=== PATIENT | female | born 1975 | race Caucasian/White ===

== ENCOUNTER → 2018-05-20 11:06 | Outpatient (CLI) | payer OTHER, SELFPAY ==
--- NOTE | 2018-05-20 11:11 | RAD_ITS ---
STUDY: X-RAY - LEFT ELBOW REASON FOR EXAM: Female, 42 years old. Posterior elbow pain. TECHNIQUE: 3 view(s) of the elbow. COMPARISON: None. FINDINGS: Normal visualized humerus, radius and ulna. Normal radiocapitellar and ulnotrochlear articulations. The soft tissue structures are unremarkable. RAD/Elbow min 3 Views IMPRESSION: Normal x-ray examination of the elbow. Electronically Signed: Zoltan Emery, at 12:49 EST , Service support ,
== END ==
PROVIDERS: Family Provider Internal Medicine; PCP Internal Medicine; Visit Provider Nurse Practitioner
DX: M25.522 Pain in left elbow (principal)
CPT/HCPCS: 73080

== ENCOUNTER → 2020-04-05 07:51 | Outpatient (CLI) | payer OTHER, SELFPAY | PROVIDERS: PCP Internal Medicine; Referring Provider Internal Medicine; Visit Provider Internal Medicine | DX: Z20.828 Contact with and (suspected) exposure to other viral communicable diseases (principal) | CPT/HCPCS: 36415; 86769 ==

== ENCOUNTER 2021-02-13 19:56 | Emergency (ER) | payer OTHER, SELFPAY ==
[2021-02-13 19:57] VITALS: BP 130/110; PULSE 72; RESP 14; TEMP 36.7; O2SAT 100; BMI 25.0
--- NOTE | 2021-02-13 20:52 | EKG12_ITS ---
Test Reason : CP Blood Pressure : / mmHG Vent. Rate : 069 BPM Atrial Rate : 069 BPM P-R Int : 164 ms QRS Dur : 082 ms QT Int : 430 ms P-R-T Axes : 073 086 072 degrees QTc Int : 460 ms Normal sinus rhythm Normal ECG Confirmed by LUPE GARVIN, KATHERINE ([id number]), editor managing director HUI BLAIR ([id number]) on 02/17/2021 9:50:33 AM Referred By: YASMANI Confirmed By:KELVIN ANDRADE MD
--- NOTE | 2021-02-13 21:00 | RAD_ITS ---
INDICATION: chest pain EXAMINATION/TECHNIQUE: X-RAY - XR Chest 1 View COMPARISON: None. FINDINGS: LINES/DEVICES: None. LUNGS: Increased lung volumes without definite flattening of the diaphragm most likely representing deep inspiratory effort. Associated hyperlucency to suggest emphysema. Lungs are clear without airspace opacity or abnormal interstitial pattern. No pleural effusion or pneumothorax. No nodule or mass. MEDIASTINUM AND CARDIOVASCULAR STRUCTURES: Normal size and contour of the cardiomediastinal silhouette. No evidence of pulmonary vascular congestion. BONES AND SOFT TISSUES: No abnormality within limits of the exam. RAD/Chest 1 View (Portable) IMPRESSION: 1. Increased lung volumes likely due to deep inspiratory effort. Air trapping is not completely excluded. Consider lateral views to assess for flattening of the diaphragm caused by air trapping if clinically concerned. 2. Otherwise normal exam. Electronically Signed: Ned Majano DO at 21:31 EST Tel , Service support ,
[2021-02-13 21:16] VITALS: BP 135/82; PULSE 60; RESP 14; O2SAT 100
[2021-02-13 21:27] LABS: Absolute Lymphocyte Count 2.61 X10^3/uL (0.83-4.51); Absolute Neutrophil Count 3.4 X10^3/uL (2.0-7.7); Basophil# 0.05 X10^3/uL; Basophil% 0.7 % (0-1); Eosinophil# 0.14 X10^3/uL; Hematocrit 37.5 % (37-47); Hemoglobin 12.5 g/dL (12.0-15.0); Lymphocyte # 2.61 X10^3/ul (0.83-4.51); Lymphocyte % 36.7 % (19-41); Mean Corp Hgb Conc 33.3 g/dL (32-36); Mean Corpuscular Hgb 30.6 pg (27.0-32.0); Mean Corpuscular Volume 91.7 fL (81-99); Mean Platelet Vol. 10.7 fl (6.2-12.0); Monocyte# 0.94 X10^3/uL; Monocyte% 13.2 % (0-10); NRBC Flagged by Analyzer 0 % (0-5); Neutrophil # 3.35 X10^3/uL (2.7-7.7); Neutrophil % 47.1 % (47-70); Platelet Count 310 K/mm3 (150-450); RBC Distribution Width SD 40.4 fl (35.1-43.9); Red Blood Count 4.09 M/mm3 (4.2-5.4); White Blood Count 7.1 K/mm3 (4.4-11.0)
[2021-02-13 21:36] LABS: Anion Gap 8 (5-15); BUN 8 mg/dL (7-18); BUN/Creat Ratio 10.8 RATIO (10-20); Calcium,Total 8.9 mg/dL (8.5-10.1); Chloride 106 mmol/L (98-107); Creatinine, Serum 0.74 mg/dL (0.55-1.02); EST Glomerular Filtration Rate 90 mL/min (>60); Est Glom Filt Rate - Afr Amer 109 mL/min (>60); Estimated Creatinine Clearance 90.82 ml/min; Glucose 113 mg/dL (74-106); Potassium 2.9 mmol/L (3.5-5.1); Sodium Level 141 mmol/L (136-145); Troponin-I HS 4 pg/mL (3.0-54.0)
[2021-02-13 21:57] LABS: AST(SGOT) 34 U/L (15-37); Alanine Aminotransfer ALT/SGPT 32 U/L (13-56); Albumin, Serum 3.6 g/dL (3.2-5.0); Alkaline Phosphatase 79 U/L (45-117); Bilirubin, Direct 0.11 mg/dL (0.00-0.30); Globulin 3.5 g/dL (2.2-4.2); Lipase 201 U/L (73-393); Protein, Total 7.1 g/dL (6.4-8.2)
[2021-02-13 22:17] VITALS: BP 117/76; PULSE 66; RESP 18; O2SAT 100
--- NOTE | 2021-02-13 22:18 | EX.ED.DYSGE1 ---
HPI History of Present Illness Chief Complaint: Chest Pain Narrative Narrative: Patient is a 45-year-old female who states that she ate some fried chicken skin a fried potato and some cheese this evening and then was driving her kids to the park. She states she suddenly developed some sharp squeezing pain from her right upper abdomen/lower chest that wrapped around towards the left. She states the pain was causing some shortness of breath and nausea. She states she has never had pain like this before and therefore came to the hospital for evaluation. The patient states that upon arrival the pain is spontaneously improved [facility] Medical History PCOS (polycystic ovarian syndrome) UTI (urinary tract infection) Home Medications metformin 500 mg PO DAILY 02/13/21 [History Last Taken Unknown] Allergy/AdvReac Type Severity Reaction Status Date / Time povidone-iodine Allergy Rash Verified 02/13/21 20:01 [From Betadine] Social History Smoking Status: Never smoker ROS ROS ED Constitutional Constitutional ED: Denies chills or fever(s) ENT ENT ED: Denies sore throat Cardiovascular Cardiovascular: Denies chest pain Respiratory/Chest Respiratory/Chest: Denies cough or dyspnea Gastrointestinal Gastrointestinal: Reports abdominal pain and nausea; Denies diarrhea or vomiting Genitourinary Genitourinary ED: Denies dysuria Musculoskeletal Musculoskeletal: Denies myalgias Integumentary Denies rash Neurologic Neurologic: Denies headache(s) Hematologic/Lymphatic Hematologic/Lymphatic: Denies easy bleeding or easy bruising EXAM Physical Exam Const Vital Signs: 02/13/21 19:57 02/13/21 21:16 Temperature 98.0 F Temperature Source Temporal Pulse Rate 72 60 Respiratory Rate 14 14 Blood Pressure 130/110 H 135/82 H Blood Pressure Mean 116 99 Pulse Ox 100 100 Oxygen Delivery Method Room Air Room Air Positive well nourished and well developed General Appearance ED: well developed HEENT Reports moist mucous membranes Eyes PERRL and EOMs intact bilaterally Neck supple Resp normal respiratory effort and clear to auscultation bilaterally Cardio regular rate and regular rhythm Rate: other Other Details: Radial pulses are +2-4 bilaterally are equal and symmetric GI non-distended GI Narrative: There is mild pain to palpation in the midepigastric and right upper quadrant without voluntary guarding or rigidity no pulsatile mass. Negative Cunha sign Auscultation: normoactive bowel sounds Palpation: soft Back/Spine no CVA tenderness Extremity normal to inspection Extremity Narrative: No asymmetric edema no pitting edema negative Homans' sign bilaterally Neuro oriented x3 and CN's II-XII intact bilaterally Sensorium / Orientation: alert Motor Exam: strength 5/5 throughout Psych mental status grossly normal Skin no rashes or lesions noted MDM MDM MDM Narrative Medical decision making narrative: Patient presented to the ER in no acute distress with spontaneous resolution of her pain. She is low risk for cardiac disease and the history is most consistent with a gallbladder spasm. Basic blood work was obtained which showed no elevation to the troponin or lipase and normal liver enzymes. On reevaluation she is resting comfortably maintains that her pain is resolved and therefore be discharged home with outpatient follow-up Lab Data Attestation: I reviewed the patient's lab results. Labs: Laboratory Results - last 24 hr 02/13/21 02/13/21 02/13/21 20:00 20:00 20:00 WBC 7.1 RBC 4.09 L Hgb 12.5 Hct 37.5 MCV 91.7 MCH 30.6 MCHC 33.3 RDW Std Deviation 40.4 RDW Coeff of Bessie 12.0 Plt Count 310 MPV 10.7 Immature Gran % (Auto) 0.300 Neut % (Auto) 47.1 Lymph % (Auto) 36.7 [place] % (Auto) 13.2 H Eos % (Auto) 2.0 Baso % (Auto) 0.7 Absolute Neuts (auto) 3.4 Absolute Lymphs (auto) 2.61 Nucleated RBC % 0 Sodium 141 Potassium 2.9 L Chloride 106 Carbon Dioxide 27.0 Anion Gap 8 BUN 8 Creatinine 0.74 Estim Creat Clear Calc 90.82 Est GFR (MDRD) Af Amer 109 Est GFR (MDRD) Non-Af 90 BUN/Creatinine Ratio 10.8 Glucose 113 H Calcium 8.9 Total Bilirubin 0.30 Direct Bilirubin 0.11 AST 34 ALT 32 Alkaline Phosphatase 79 Troponin I High Sens 4 Total Protein 7.1 Albumin 3.6 Globulin 3.5 Lipase 201 Radiography Diagnostic Testing: Clinical Impression(s) from Imaging Studies Chest X-Ray 02/13/21 21:00 IMPRESSION: 1. Increased lung volumes likely due to deep inspiratory effort. Air trapping is not completely excluded. Consider lateral views to assess for flattening of the diaphragm caused by air trapping if clinically concerned. 2. Otherwise normal exam. Electronically Signed: Ned Majano DO at 21:31 EST Tel , Service support , Discharge Plan Triage Chief Complaint: Chest Pain ED Provider: Andi Ramirez Dx/Rx/DC Orders Clinical Impression: Biliary colic Instructions: ED Gallstones with Biliary Colic Prescriptions: No Action metformin 500 mg Tablet 500 mg PO DAILY RF: 0 Primary Care Provider: Diana Fagan Referrals: Diana Fagan DO [Primary Care Provider] - Disposition Disposition: Home, Self Care
== END 2021-02-13 22:35 | disposition home or self-care (01) ==
PROVIDERS: Emergency Provider Emergency Medicine; PCP Internal Medicine
DX: K80.50 Calculus of bile duct without cholangitis or cholecystitis without obstruction (principal); E28.2 Polycystic ovarian syndrome; Z79.84 Long term (current) use of oral hypoglycemic drugs
CPT/HCPCS: 71045; 80048; 80076; 83690; 84484; 85025; 93005; 99285

== ENCOUNTER 2022-03-05 16:13 | Emergency (ER) | payer OTHER, SELFPAY ==
[2022-03-05 16:14] VITALS: BP 120/84; PULSE 90; RESP 16; TEMP 36; O2SAT 100; BMI 24.9
--- NOTE | 2022-03-05 16:40 | US_ITS ---
STUDY: ABDOMINAL ULTRASOUND - RIGHT UPPER QUADRANT REASON FOR VISIT: Female, 46 years old PAIN TECHNIQUE: Ultrasound evaluation of the right upper quadrant was performed with real-time and static wagner-scale imaging. TECHNICAL QUALITY: Adequate. COMPARISON: None. FINDINGS: Liver: The liver measures 17.6 cm. There is normal echogenicity of the liver. The bile ducts are within normal limits. There is hepatic color flow. The direction of portal flow is hepatopetal. There is no demonstrated mass lesion. Gallbladder: Normal distended gallbladder. The gallbladder wall measures 2 mm. There is a negative sonographic Cunha''s sign. There is no pericholecystic fluid. Gallbladder full of gallstones producing a wall echo shadow complex. Common Bile Duct (C.B.D.): The common bile duct measures 5 mm. Pancreas: Normal size of the head, body and tail of the pancreas. There is normal echogenicity of the pancreas. There is no demonstrated pancreatic mass or cyst. Right Kidney: Normal size of the right kidney. The right kidney measures 9.8 cm. Normal renal cortex. The right cortex measures 1.1 cm. There is no demonstrated renal mass or cyst. There is no right hydronephrosis. US/Gallbladder IMPRESSION: Cholelithiasis. Electronically Signed: Jose Walden MD at 17:40 EST ,
[2022-03-05 17:07] LABS: Absolute Lymphocyte Count 0.55 X10^3/uL (0.83-4.51); Absolute Neutrophil Count 9.4 X10^3/uL (2.0-7.7); Basophil# 0.04 X10^3/uL; Basophil% 0.4 % (0-1); Eosinophil# 0.02 X10^3/uL; Eosinophils% 0.2 % (0-5); Hematocrit 38.3 % (37-47); Hemoglobin 12.4 g/dL (12.0-15.0); Lymphocyte # 0.55 X10^3/ul (0.83-4.51); Lymphocyte % 5.1 % (19-41); Mean Corp Hgb Conc 32.4 g/dL (32-36); Mean Corpuscular Hgb 30.5 pg (27.0-32.0); Mean Corpuscular Volume 94.1 fL (81-99); Mean Platelet Vol. 10.3 fl (6.2-12.0); Monocyte# 0.65 X10^3/uL; Monocyte% 6.1 % (0-10); NRBC Flagged by Analyzer 0 % (0-5); Neutrophil # 9.39 X10^3/uL (2.7-7.7); Neutrophil % 87.7 % (47-70); POSITIVE DIFFERENTIAL YES; Platelet Count 263 K/mm3 (150-450); RBC Distribution Width SD 41.3 fl (35.1-43.9); Red Blood Count 4.07 M/mm3 (4.2-5.4); White Blood Count 10.7 K/mm3 (4.4-11.0)
[2022-03-05 17:13] LABS: ALB/GLOB Ratio 1.1 RATIO (0.9-2.4); AST(SGOT) 164 U/L (15-37); Alanine Aminotransfer ALT/SGPT 91 U/L (13-56); Albumin, Serum 3.6 g/dL (3.2-5.0); Alkaline Phosphatase 89 U/L (45-117); Anion Gap 3 (5-15); BUN 11 mg/dL (7-18); BUN/Creat Ratio 14.5 RATIO (10-20); Calcium,Total 8.7 mg/dL (8.5-10.1); Chloride 109 mmol/L (98-107); Creatinine, Serum 0.76 mg/dL (0.55-1.02); EST Glomerular Filtration Rate 87 mL/min (>60); Est Glom Filt Rate - Afr Amer 106 mL/min (>60); Estimated Creatinine Clearance 87.51 ml/min; Globulin 3.2 g/dL (2.2-4.2); Glucose 136 mg/dL (74-106); Potassium 3.8 mmol/L (3.5-5.1); Protein, Total 6.8 g/dL (6.4-8.2); Sodium Level 141 mmol/L (136-145)
[2022-03-05 17:16] LABS: Differential Indicated SCAN CRITERIA MET
[2022-03-05 17:37] LABS: Differential Comment SCANNED
[2022-03-05 18:10] VITALS: BP 110/72; PULSE 82; RESP 16; O2SAT 98
--- NOTE | 2022-03-05 18:21 | EX.ED.DYSGE1 ---
HPI History of Present Illness Chief Complaint: Abd Pain Informant: patient Narrative Narrative: Heydi with episodes of what she describes as her gallbladder pain. She has had known gallstones for almost 14 years. She gets occasional pain but normally does not last more than about 20 minutes or so. She has had pain that has been going on episodically for about 3 hours now. She states it will hurt badly and then calm down. She now states it is feeling better and her last episode was 30 minutes ago which is longer interval than any of the others. She is not nauseated. The pain is epigastric right upper quadrant and radiates to her back. It occurred after eating eggs [place] and deep-fried pickles. [facility] Medical History Gallstone High blood sugar PCOS (polycystic ovarian syndrome) UTI (urinary tract infection) Home Medications metformin 500 mg tablet 500 mg PO DAILY 02/13/21 [History Last Taken Unknown] Allergy/AdvReac Type Severity Reaction Status Date / Time povidone-iodine Allergy Rash Verified 03/05/22 16:14 [From Betadine] Social History Smoking Status: Never smoker ROS ROS ED Constitutional Constitutional ED: Denies chills or fever(s) ENT ENT ED: Denies rhinorrhea or sore throat Cardiovascular Cardiovascular: Denies chest pain, palpitations or racing heartbeat Respiratory/Chest Respiratory/Chest: Denies cough, dyspnea or sputum Gastrointestinal Gastrointestinal: Reports abdominal pain; Denies nausea or vomiting Genitourinary Genitourinary ED: Denies dysuria or hematuria Musculoskeletal Musculoskeletal: Reports back pain and other Details: Some radiation to the back which is typical for her. ; Denies myalgias or neck pain Integumentary Denies rash Neurologic Neurologic: Denies paresthesias or weakness Endocrine Endocrinology: Denies polydipsia or polyuria Hematologic/Lymphatic Hematologic/Lymphatic: Denies easy bleeding or easy bruising Allergic/Immunologic Allergic/Immunologic ED: Denies urticaria EXAM Physical Exam Const Vital Signs: 03/05/22 16:14 03/05/22 18:10 Temperature 96.8 F L Temperature Source Temporal Pulse Rate 90 82 Respiratory Rate 16 16 Blood Pressure 120/84 H 110/72 Blood Pressure Mean 96 84 Pulse Ox 100 98 Oxygen Delivery Method Room Air Room Air Positive well nourished and well developed Constitutional Narrative: Patient looks comfortable now but admits that the pain seems to be markedly better. General Appearance ED: well developed and NAD; Negative for cyanotic or diaphoretic HEENT Reports moist mucous membranes Eyes General Eye ED: Negative for scleral icterus Neck no JVD Chest Wall inspection of chest normal Resp normal respiratory effort and clear to auscultation bilaterally Auscultation: Negative for rales, rhonchi or wheezes Cardio regular rate and regular rhythm GI normal to inspection, nondistended, normoactive bowel sounds GI Narrative: Patient has just a hint of tenderness in the right upper quadrant with deep palpation. Negative Cunha sign. No rebound guarding or mass. Back/Spine no CVA tenderness Extremity normal to inspection General Extremety ED: Negative for edema or tenderness General Extremity: Negative for edema Neuro oriented x3 Psych mental status grossly normal Skin no rashes or lesions noted MDM MDM MDM Narrative Medical decision making narrative: CBC showed no marked abnormality including white count hemoglobin and platelets. Electrolytes were normal. The glucose was minimally up at 136. She is on metformin for polycystic ovarian syndrome. AST and ALT had mild elevations but total bilirubin and alkaline phosphatase was normal. Ultrasound showed gallstones but no sign of acute cholecystitis. Her symptoms have now been resolved for 2 hours. I think we get her home. She has a physical exam scheduled in early March with her primary physician and will discuss options of surgical referral at that time. She would like to avoid surgery as long as possible if able. Lab Data Attestation: I reviewed the patient's lab results. Labs: Laboratory Results - last 24 hr 03/05/22 03/05/22 03/05/22 16:45 16:45 16:45 WBC 10.7 RBC 4.07 L Hgb 12.4 Hct 38.3 MCV 94.1 MCH 30.5 MCHC 32.4 RDW Std Deviation 41.3 RDW Coeff of Bessie 12.0 Plt Count 263 MPV 10.3 Immature Gran % (Auto) 0.500 Neut % (Auto) 87.7 H Lymph % (Auto) 5.1 L [place] % (Auto) 6.1 Eos % (Auto) 0.2 Baso % (Auto) 0.4 Absolute Neuts (auto) 9.4 H Absolute Lymphs (auto) 0.55 L Nucleated RBC % 0 Differential Comment SCANNED Sodium 141 Potassium 3.8 Chloride 109 H Carbon Dioxide 29.0 Anion Gap 3 L BUN 11 Creatinine 0.76 Estim Creat Clear Calc 87.51 Est GFR (MDRD) Af Amer 106 Est GFR (MDRD) Non-Af 87 BUN/Creatinine Ratio 14.5 Glucose 136 H Calcium 8.7 Total Bilirubin 0.40 AST 164 H ALT 91 H Alkaline Phosphatase 89 Total Protein 6.8 Albumin 3.6 Globulin 3.2 Albumin/Globulin Ratio 1.1 Serum , Qual NEGATIVE Radiography Diagnostic Testing: Clinical Impression(s) from Imaging Studies Gallbladder Ultrasound 03/05/22 16:40 IMPRESSION: Cholelithiasis. Electronically Signed: Jose Walden MD at 17:40 EST , Multiple gallstones but no sign of acute cholecystitis. Discharge Plan Triage Chief Complaint: Abd Pain ED Provider: Brock Blount Dx/Rx/DC Orders Clinical Impression: Biliary colic, Gallstones Instructions: ED Gallstones with Biliary Colic Prescriptions: No Action metformin 500 mg Tablet 500 mg PO DAILY Primary Care Provider: Jackeline Funes Referrals: Jackeline Funes DO [Primary Care Provider] - Keep Kvng appointment Disposition Disposition: Home, Self Care
[2022-03-05 18:25] LABS: Internal QC Validated? YES +Cl - CLEAR BKGD; Pregnancy, Serum, hCG Quali. NEGATIVE Negative
== END 2022-03-05 18:43 | disposition home or self-care (01) ==
PROVIDERS: Emergency Provider Emergency Medicine; PCP Internal Medicine; Visit Provider Emergency Medicine
DX: K80.70 Calculus of gallbladder and bile duct without cholecystitis without obstruction (principal); E28.2 Polycystic ovarian syndrome
CPT/HCPCS: 76705; 80053; 84703; 85025; 96360; 99282; J7040; A4216

== ENCOUNTER 2022-06-03 01:00 | Emergency (ER) | payer OTHER, SELFPAY ==
[2022-06-03 01:03] VITALS: BP 107/68; PULSE 115; RESP 18; TEMP 36.6; O2SAT 100; BMI 24.7
--- NOTE | 2022-06-03 01:20 | ED.VIS.GI ---
HPI HPI - GI History of Present Illness Chief Complaint: Nausea/Vomiting/Diarrhea Informant: patient Nausea/Vomiting/Emesis GI Symptom: Positive for Nausea and Vomiting Onset: Today Quality: Positive for Nonbilious Severity: Severe Diarrhea/Melena/Hematochezia GI Symptom: Positive for Diarrhea; Negative for Melena or Hematochezia Onset: Today Severity: Severe Narrative Narrative: Patient has been having diarrhea for the past 7 or 8 weeks since she had her gallbladder out, her pain resolved and she recovered otherwise uneventfully, but in this past day the diarrhea is significantly worse, no blood or melena, but she is also had nausea and vomiting with it to the point where she cannot keep any fluids down is feeling lightheaded and dehydrated and having some muscle twitching/spasms. No fevers or chills. 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 There has been a high prevalence of gastroenteritis in the community recently. She denies any right upper quadrant pain, jaundice, or itching all over/confusion. [facility] Medical History Gallstone High blood sugar PCOS (polycystic ovarian syndrome) UTI (urinary tract infection) Home Medications metformin 500 mg tablet 500 mg PO DAILY 02/13/21 [History Last Taken Unknown] ondansetron 4 mg disintegrating tablet 8 mg PO Q8H PRN PRN Nausea #20 tabs 06/03/22 [Rx Last Taken Unknown] Allergy/AdvReac Type Severity Reaction Status Date / Time povidone-iodine Allergy Rash Verified 03/05/22 16:14 [From Betadine] Social History Smoking Status: Never smoker ROS ROS ED Constitutional Constitutional ED: Reports malaise; Denies chills or fever(s) Eyes Eyes: Denies change in vision or diplopia ENT ENT ED: Reports rhinorrhea and sore throat; Denies ear pain Cardiovascular Cardiovascular: Reports lightheadedness; Denies chest pain, palpitations or syncope Respiratory/Chest Respiratory/Chest: Denies cough, dyspnea or dyspnea on exertion Gastrointestinal Gastrointestinal: Reports diarrhea, nausea and vomiting; Denies abdominal pain Genitourinary Genitourinary ED: Denies dysuria or hematuria Musculoskeletal Musculoskeletal: Denies back pain or neck pain Integumentary Denies abscess or rash Neurologic Neurologic: Denies headache(s), paresthesias or weakness Psychiatric Psychiatric: Denies anxiety or suicidal thoughts EXAM Physical Exam Const Vital Signs: 06/03/22 01:03 Temperature 97.8 F Temperature Source Oral Pulse Rate 115 H Respiratory Rate 18 Blood Pressure 107/68 Blood Pressure Mean 81 Pulse Ox 100 Oxygen Delivery Method Room Air Positive well nourished and well developed General Appearance ED: well developed and NAD HEENT Reports moist mucous membranes normocephalic and atraumatic Eyes PERRL and EOMs intact bilaterally Neck full ROM and supple Resp normal respiratory effort and clear to auscultation bilaterally Cardio regular rate, regular rhythm and no murmurs Rate: tachycardic GI non-tender and non-distended Auscultation: hyperactive bowel sounds Palpation: soft Back/Spine no CVA tenderness General Back: other FROM Extremity normal to inspection General Extremety ED: Negative for edema, pulses abnormal or tenderness General Extremity: Negative for edema or pulses abnormal Neuro oriented x3, CN's II-XII intact bilaterally and no sensory deficits noted Sensorium / Orientation: awake and alert Motor Exam: strength 5/5 throughout Skin no rashes or lesions noted and no wounds MDM MDM MDM Narrative Medical decision making narrative: Labs obtained patient does have a leukocytosis which is nonspecific there is no bandemia, otherwise labs unremarkable. She was treated with IV fluids, Zofran empirically. She did feel little better but felt like she could use more fluids, and although her kidney function is normal, she was given more fluids for her symptoms. She is tolerating oral fluids. She is able to stand up without near syncope, her heart rate is improved. Will prescribe her Zofran, supportive care advised. She has had no coughing or shortness of breath, and her lungs are clear on exam. I do not think she has pneumonia, at this time my suspicion is the leukocytosis is due to viral infection, she has no symptoms to suggest acute bacterial enteritis, and she has had no diarrhea while in the emergency department to send for testing. She was advised that if she does get worse, certainly we could do that. She is comfortable being discharged with prescription for Zofran this time and a work note. Lab Data Attestation: I reviewed the patient's lab results. Labs: Laboratory Results - last 24 hr 06/03/22 06/03/22 01:20 01:20 WBC 17.7 H RBC 4.64 Hgb 14.1 Hct 43.8 MCV 94.4 MCH 30.4 MCHC 32.2 RDW Std Deviation 41.3 RDW Coeff of Bessie 11.9 Plt Count 286 MPV 10.5 Immature Gran % (Auto) 0.300 Neut % (Auto) 91.7 H Lymph % (Auto) 2.8 L [place] % (Auto) 4.5 Eos % (Auto) 0.4 Baso % (Auto) 0.3 Absolute Neuts (auto) 16.2 H Absolute Lymphs (auto) 0.50 L Nucleated RBC % 0 Sodium 142 Potassium 3.4 L Chloride 109 H Carbon Dioxide 26.0 Anion Gap 7 BUN 9 Creatinine 0.78 Estim Creat Clear Calc 85.26 Est GFR (MDRD) Af Amer 102 Est GFR (MDRD) Non-Af 84 BUN/Creatinine Ratio 11.5 Glucose 161 H Calcium 8.9 Total Bilirubin 0.40 AST 18 ALT 22 Alkaline Phosphatase 86 Total Protein 8.0 Albumin 4.2 Globulin 3.8 Albumin/Globulin Ratio 1.1 Discharge Plan Triage Chief Complaint: Nausea/Vomiting/Diarrhea ED Provider: Praful Flores Dx/Rx/DC Orders Clinical Impression: Gastroenteritis Instructions: Viral Gastroenteritis Prescriptions: New ondansetron [ondansetron] 4 mg tablet,disintegrating 8 mg PO Q8H PRN PRN (Reason: Nausea) Qty: 20 0RF No Action metformin 500 mg Tablet 500 mg PO DAILY Stand Alone Forms: ED Work / School Excuse Primary Care Provider: Jackeline Funes Referrals: Jackeline Funes DO [Primary Care Provider] - 3-5 Days if not improving Disposition Disposition: Home, Self Care
[2022-06-03] MEDS: 0.9% Normal Saline 1,000 ML 1000 ML IV (01:29)
[2022-06-03] MEDS: Ondansetron 4 MG/2 ML Vial IV (01:29)
[2022-06-03 01:30] LABS: Absolute Neutrophil Count 16.2 X10^3/uL (2.0-7.7); Basophil# 0.05 X10^3/uL; Basophil% 0.3 % (0-1); Eosinophil# 0.07 X10^3/uL; Eosinophils% 0.4 % (0-5); Hematocrit 43.8 % (37-47); Hemoglobin 14.1 g/dL (12.0-15.0); Lymphocyte % 2.8 % (19-41); Mean Corp Hgb Conc 32.2 g/dL (32-36); Mean Corpuscular Hgb 30.4 pg (27.0-32.0); Mean Corpuscular Volume 94.4 fL (81-99); Mean Platelet Vol. 10.5 fl (6.2-12.0); Monocyte% 4.5 % (0-10); NRBC Flagged by Analyzer 0 % (0-5); Neutrophil # 16.24 X10^3/uL (2.7-7.7); Neutrophil % 91.7 % (47-70); POSITIVE DIFFERENTIAL YES; Platelet Count 286 K/mm3 (150-450); RBC Distribution Width CV 11.9 % (11.6-14.6); RBC Distribution Width SD 41.3 fl (35.1-43.9); Red Blood Count 4.64 M/mm3 (4.2-5.4); White Blood Count 17.7 K/mm3 (4.4-11.0)
[2022-06-03 01:37] LABS: Differential Indicated SCAN CRITERIA MET
[2022-06-03 01:47] LABS: ALB/GLOB Ratio 1.1 RATIO (0.9-2.4); AST(SGOT) 18 U/L (15-37); Alanine Aminotransfer ALT/SGPT 22 U/L (13-56); Albumin, Serum 4.2 g/dL (3.2-5.0); Alkaline Phosphatase 86 U/L (45-117); Anion Gap 7 (5-15); BUN 9 mg/dL (7-18); BUN/Creat Ratio 11.5 RATIO (10-20); Calcium,Total 8.9 mg/dL (8.5-10.1); Chloride 109 mmol/L (98-107); Creatinine, Serum 0.78 mg/dL (0.55-1.02); EST Glomerular Filtration Rate 84 mL/min (>60); Est Glom Filt Rate - Afr Amer 102 mL/min (>60); Estimated Creatinine Clearance 85.26 ml/min; Globulin 3.8 g/dL (2.2-4.2); Glucose 161 mg/dL (74-106); Potassium 3.4 mmol/L (3.5-5.1); Sodium Level 142 mmol/L (136-145)
[2022-06-03 03:03] VITALS: BP 122/77; PULSE 92; RESP 18; TEMP 37.1; O2SAT 100
[2022-06-03 03:54] VITALS: BP 120/65; PULSE 89; RESP 18; O2SAT 100
== END 2022-06-03 03:56 | disposition home or self-care (01) ==
PROVIDERS: Emergency Provider Emergency Medicine; PCP Internal Medicine; Visit Provider Emergency Medicine
DX: K52.9 Noninfective gastroenteritis and colitis, unspecified (principal)
CPT/HCPCS: 80053; 85025; 99284; J7030; J2405

== ENCOUNTER 2023-09-27 01:38 | Emergency (ER) | payer OTHER, SELFPAY ==
[2023-09-27 01:40] VITALS: BP 124/79; PULSE 82; RESP 18; TEMP 36.7; O2SAT 100
[2023-09-27 01:51] VITALS: BMI 23.7
--- NOTE | 2023-09-27 02:12 | EX.ED.GENINJ ---
HPI History of Present Illness Chief Complaint: Bite Informant: patient Narrative Narrative: 48-year-old female presenting to the emergency room out of concern for rabies. Patient states that 8 days ago she was in [place] volunteering at a animal rescue when she was bitten by a monkey. She states that the monkey appeared well. She notes a small bite to the thenar eminence of the left hand. She states that she was assessed at a hospital while in [facility]. She states that they felt that they did not have rabies in their country and that she did not need rabies treatment. At that time she had a fever and was prescribed doxycycline. No fever since and she is not currently on doxycycline. She states that she would like to get the rabies vaccination. She states she is going on vacation and will miss some of the vaccination series because she is going to [place]. She is presenting this Wednesday morning at approximately 0200 hrs. because she just got off the plane. [facility] Medical History High blood sugar Gallstone PCOS (polycystic ovarian syndrome) UTI (urinary tract infection) Home Medications ?Medication ?Instructions ?Recorded ?Last Taken ?Type metformin 500 mg tablet 500 mg PO DAILY 02/13/21 Unknown History ondansetron 4 mg disintegrating 8 mg (2 x 4 mg) PO Q8H PRN PRN 06/03/22 Unknown Rx tablet Nausea #20 tabs Allergy/AdvReac Type Severity Reaction Status Date / Time benzoin Allergy Hives Verified 09/27/23 01:40 povidone-iodine (From Allergy Rash Verified 09/27/23 01:39 Betadine) Social History Smoking Status: Never smoker ROS ROS ED Constitutional Constitutional ED: Reports fever(s); Denies chills or weight loss Eyes Eyes: Denies change in vision or diplopia ENT ENT ED: Denies ear pain, rhinorrhea or sore throat Cardiovascular Cardiovascular: Denies chest pain, orthopnea, palpitations or racing heartbeat Respiratory/Chest Respiratory/Chest: Denies cough, dyspnea or orthopnea Gastrointestinal Gastrointestinal: Denies abdominal pain, diarrhea, nausea or vomiting Genitourinary Genitourinary ED: Denies dysuria, hematuria or urinary frequency Musculoskeletal Musculoskeletal: Denies arthralgias or myalgias Integumentary Reports other Details: Monkey bite left thenar eminence ; Denies abscess or rash Neurologic Neurologic: Denies headache(s) or weakness Psychiatric Psychiatric: Denies anxiety, depression, suicidal ideation or suicidal thoughts Endocrine Endocrinology: Denies polydipsia, polyphagia or polyuria Allergic/Immunologic Allergic/Immunologic ED: Denies mouth swelling, tongue swelling or urticaria EXAM Physical Exam Const Vital Signs: 09/27/23 01:40 09/27/23 03:34 Temperature 98.1 F 98.1 F Temperature Source Temporal Pulse Rate 82 67 Respiratory Rate 18 16 Blood Pressure 124/79 H 126/84 H Blood Pressure Mean 94 98 Pulse Ox 100 98 Oxygen Delivery Method Room Air Positive well nourished and well developed General Appearance ED: well developed and NAD HEENT Reports normocephalic, head/scalp atraumatic and moist mucous membranes Eyes PERRL and EOMs intact bilaterally Neck no lymphadenopathy, supple and no JVD Resp normal respiratory effort and clear to auscultation bilaterally Cardio regular rate, regular rhythm and no murmurs GI normal to inspection, nondistended, normoactive bowel sounds and non-tender Palpation: soft Back/Spine no CVA tenderness and normal ROM Extremity Extremity Narrative: There is a small less than half centimeter wound on the left thenar eminence without evidence of cellulitis/infection General Extremety ED: Negative for edema General Extremity: Negative for edema Neuro oriented x3 and CN's II-XII intact bilaterally Sensorium / Orientation: alert Motor Exam: strength 5/5 throughout Psych mental status grossly normal Mood & Affect: Negative for depressed or tearful Skin no rashes or lesions noted and no wounds MDM MDM MDM Narrative Medical decision making narrative: Differential diagnosis includes but not limited to cellulitis viral syndrome rabies Discussed with patient she would like to receive the rabies vaccination which would also need to include the immunoglobulin. Patient was administered the immunoglobulin by this physician in the left posterior forearm. Vaccination was given by nursing. She will need to return for the rest of the vaccination series. Continue to monitor for any signs of illness History & Record Review Discussion w/independent historian: Patient Discharge Plan Triage Chief Complaint: Bite ED Provider: Conor Gardner Dx/Rx/DC Orders Clinical Impression: Wound due to monkey bite, Rabies, need for prophylactic vaccination against Prescriptions: No Action metformin 500 mg Tablet 500 mg PO DAILY ondansetron [ondansetron] 4 mg tablet,disintegrating 8 mg PO Q8H PRN PRN (Reason: Nausea) Qty: 20 0RF Primary Care Provider: Jackeline Funes Referrals: Jackeline Funes DO [Primary Care Provider] - As Needed Print Language: Latvian Disposition Disposition: Home, Self Care Discharge Date/Time: 09/27/23 03:36
[2023-09-27] MEDS: Rabies Immune Globulin/PF 300 UNIT/ML, 5 ML VIAL 1330 UNIT IM (03:04)
[2023-09-27] MEDS: Rabies Vaccine,Human Diploid 2.5 UNITS Vial IM (03:08)
[2023-09-27 03:34] VITALS: BP 126/84; PULSE 67; RESP 16; TEMP 36.7; O2SAT 98
== END 2023-09-27 03:36 | disposition home or self-care (01) ==
PROVIDERS: Emergency Provider Emergency Medicine; PCP Internal Medicine; Visit Provider Emergency Medicine
DX: Z20.3 Contact with and (suspected) exposure to rabies (principal); S61.452A Open bite of left hand, initial encounter; W56.31XA Bitten by other marine mammals, initial encounter
CPT/HCPCS: 90675; 99283; 90375

== ENCOUNTER 2023-10-11 09:27 | Outpatient (CLI) | payer OTHER, SELFPAY ==
[2023-10-11 09:27] VITALS: BP 124/78; PULSE 64; RESP 16; RESP 18; TEMP 36.6; O2SAT 98; BMI 23.3
[2023-10-11] MEDS: Rabies Vaccine,Human Diploid 2.5 UNITS Vial IM (09:42)
== END 2023-10-11 10:48 | disposition home or self-care (01) ==
PROVIDERS: PCP Internal Medicine; Visit Provider Emergency Medicine
DX: Z23 Encounter for immunization (principal)
CPT/HCPCS: 90675